=== PATIENT | female | born 1965 | race Caucasian/White ===

== ENCOUNTER 2022-01-05 00:25 | Emergency (ER) | payer OTHER ==
[2022-01-05 01:11] VITALS: BP 131/87; PULSE 66; RESP 14; TEMP 98.1; BMI 20.5
== END 2022-01-05 01:34 | disposition home or self-care (01) ==
LOC: JER 00:25
DX: R22.0 Localized swelling, mass and lump, head (principal)
CPT/HCPCS: 99281-25